=== PATIENT | male | born 1990 | race Caucasian/White ===

== ENCOUNTER 2018-05-24 19:02 | Emergency (ER) | payer OTHER ==
[~2018-05-24] VITALS: Ht 182.9 cm; Wt 104.3 kg
[2018-05-24 19:11] VITALS: BP 150/69
[2018-05-24] MEDS: IBUPROFEN 400 MG TABLET. PO ONE (19:31)
--- NOTE | 2018-05-24 20:23 | PHYS DOC ---
Past Medical History Past Medical History: No Pertinent History Past Surgical History: Other Additional Past Surgical Histo: r hand Alcohol Use: None Drug Use: None Adult General Chief Complaint Chief Complaint: ANKLE PROBLEM HPI HPI Patient is a 27 year old male who presents with left ankle pain after he fell down 2 stairs approximately 30 minutes prior to arrival. He denies loss of consciousness or any other injury. He states it is very painful to bear weight on that extremity. He has not tried ibuprofen or Tylenol but instead presented directly to the emergency department. Review of Systems Review of Systems Constitutional: Denies fever or chills [] Respiratory: Denies cough or shortness of breath [] Cardiovascular: No additional information not addressed in HPI [] GI: Denies abdominal pain, nausea, vomiting, bloody stools or diarrhea [] : Denies dysuria or hematuria [] Musculoskeletal: See history of present illness Integument: Denies rash or skin lesions [] Neurologic: Denies headache, focal weakness or sensory changes [] Endocrine: Denies polyuria or polydipsia [] All other systems were reviewed and found to be within normal limits, except as documented in this note. Current Medications Current Medications Current Medications Medications (Trade) Dose Ordered Sig/Jean Pierre Start Time Stop Time Status Last Admin Dose Admin Ibuprofen (Motrin) 800 mg 1X ONCE 05/24/18 19:30 05/24/18 19:31 DC 05/24/18 19:31 800 MG Allergies Allergies Allergies Coded Allergies Type Severity Reaction Last Updated Verified No Known Drug Allergies 05/24/18 No Physical Exam Physical Exam Constitutional: Well developed, well nourished, no acute distress, non-toxic appearance. [] Cardiovascular:Heart rate regular rhythm, no murmur [] Lungs & Thorax: Bilateral breath sounds clear to auscultation [] Abdomen: Bowel sounds normal, soft, no tenderness, no masses, no pulsatile masses. [] Skin: Warm, dry, no erythema, no rash. [] Back: No tenderness, no CVA tenderness. [] Extremities: Left ankle tenderness primarily to the lateral malleolus with no gross deformity noted, no cyanosis, no clubbing, ROM decreased due to pain, no edema ecchymosis noted. [] Neurologic: Alert and oriented X 3, normal motor function, normal sensory function, no focal deficits noted. [] Psychologic: Affect normal, judgement normal, mood normal. [] Current Patient Data Vital Signs Vital Signs Date Time Temp Pulse Resp B/P (MAP) Pulse Ox O2 Delivery O2 Flow Rate FiO2 05/24/18 19:11 98.4 76 18 150/69 (96) 96 Room Air 98.4 EKG EKG [] Radiology/Procedures Radiology/Procedures []PATIENT: HENNA THOMAS RACCOUNT: [id number]#: [id number] : 1990 LOCATION: ER AGE: 27 SEX: M EXAM STATUS: REG ER ORD. PHYSICIAN: SEBASTIAN GAN APRN REASON: fell down stairs PROCEDURE: ANKLE LEFT 3V Examination: 3 views of the left ankle HISTORY: History of fall down the stairs COMPARISON: None available. FINDINGS: The ankle mortise appears intact. There is no acute fracture or dislocation identified. IMPRESSION: No acute osseous findings. Electronically signed by: Kiko Ramos MD (05/24/2018 9:01 PM) [facility] DICTATED and SIGNED BY: KIKO RAMOS MD DATE: 05/24/18 2100 Course & Med Decision Making Course & Med Decision Making Pertinent Labs and Imaging studies reviewed. (See chart for details) []The patient was wrapped with an Curtis bandage for comfort. Dragon Disclaimer Dragon Disclaimer This electronic medical record was generated, in whole or in part, using a voice recognition dictation system. Departure Departure Impression: Primary Impression: Ankle sprain Disposition: HOME, SELF-CARE Condition: STABLE Referrals: NO PCP (PCP) Patient Instructions: Ankle Sprain, Knee Wraps (Elastic Bandage) and RICE Additional Instructions: You may take ibuprofen or Tylenol for pain. RICE the extremity. Follow-up with your workman's compensation doctor for further evaluation if needed. If worsening return to the emergency department. SEBASTIAN GAN APRN May 24, 2018 20:23
--- NOTE | 2018-05-24 21:05 | RAD ---
Examination: 3 views of the left ankle HISTORY: History of fall down the stairs COMPARISON: None available. FINDINGS: The ankle mortise appears intact. There is no acute fracture or dislocation identified. IMPRESSION: No acute osseous findings. Electronically signed by: Kiko Ramos MD (05/24/2018 9:01 PM) [facility]
== END 2018-05-24 20:33 | disposition home or self-care (01) ==
LOC: ER 19:02
DX: S93.402A Sprain of unspecified ligament of left ankle, initial encounter (principal); Y93.89 Activity, other specified; W10.9XXA Fall (on) (from) unspecified stairs and steps, initial encounter; Y92.89 Other specified places as the place of occurrence of the external cause; Y99.8 Other external cause status
CPT/HCPCS: 73610; 99283; 99284